=== PATIENT | male | born 1925 | race Caucasian/White ===

== ENCOUNTER 2016-03-17 23:24 | Emergency (ER) | payer OTHER ==
[~2016-03-17 23:24] MED LIST: ASAB PO; ATEN25 PO; CAT1 PO; CYANO1000T PO; LISINOPRIL40 MG PO; VITAMIN D31000 UNIT PO; VITC500 PO
== END 2016-03-17 23:49 | disposition home or self-care (01) ==
LOC: ER 23:24
PROC: 0HQ1XZZ Repair Face Skin, External Approach (ICD-10-PCS; principal; 2016-03-17)
DX: S01.81XA Laceration without foreign body of other part of head, initial encounter (principal); I10 Essential (primary) hypertension; W19.XXXA Unspecified fall, initial encounter
CPT/HCPCS: 70450; 70486; 72125; 90471; 90714; 99284; A9270-GY